=== PATIENT | female | born 1985 | race Caucasian/White ===

== ENCOUNTER 2017-03-01 17:08 | Emergency (ER) | payer BC ==
[~2017-03-01] VITALS: Ht 167.6 cm; Wt 98.4 kg
[~2017-03-01 17:08] MED LIST: IBUP-103 PO; PRLSR20 PO
[2017-03-01 17:18] VITALS: TEMP 37; Ht 167.6 cm; Wt 98.4 kg
[2017-03-01] MEDS ORDERED: SODIUM CHLORIDE 0.9% 1000ML 1,000 ML IV ONE (17:45)
[2017-03-01] MEDS ORDERED: RANITAB33 PO (17:59)
--- NOTE | 2017-03-01 18:01 | EMERGENCY ROOM VISIT NOTE ---
History First contact with patient: 17:22 Chief Complaint: ABDOMINAL PAIN Stated Complaint: UPPER RT STOMACH PAIN AFTER MEALS, SHOULDER PAIN Nursing Triage Summary: RUQ abdominal pain radiating to shoulder ongoing after eating History of Present Illness The patient is a 32 year old female who presents to the Emergency Room with complaints of right upper abdominal pain that has been intermittent over the last 2 months. The patient describes it as a constant, dull ache. Intermittently, she gets sharp, stabbing pains. It is worse with eating. She has had nausea without vomiting. Denies any fever or chills. I'll movements have been fairly irregular; anywhere from constipation to diarrhea. Her last bowel movement was this morning. Review of Systems 10 system review performed and negative unless noted in HPI or below Past Medical/Surgical History Medical Problems: (1) Asthma (2) Endometriosis (3) GERD (gastroesophageal reflux disease) Surgical Problems: (1) S/P total hysterectomy and bilateral salpingo-oophorectomy Family History Diabetes mellitus FH: cancer FH: cancer FH: lung disease Hypertension Social History Smoking Status: Current Every Day Smoker Alcohol Use: occasionally Marital Status: Housing Status: lives with family Occupation Status: employed Current/Historical Medications Scheduled Ondasetron Odt (Zofran Odt), 4 MG SL Q6H Scheduled PRN Hydrocodone/Acetaminophen 5MG/325MG (Whately 5MG/325MG), 1-2 TABLET PO Q4H PRN for Pain Ibuprofen Tab (Advil), 200-600 MG PO Q6-8H PRN for Pain Ranitidine Hcl (Zantac), 75 MG PO DAILY PRN for GI Upset Allergies Coded Allergies: Cinnamon (Verified Allergy, Severe, THROAT SWELLS,RESP DIFFICULTY, ) Lactose Intolerance (Verified Allergy, Severe, GI SYMPTOMS, 03/01/17) Naproxen (Verified Allergy, Severe, GI SYMPTOMS,SYNCOPAL EPISODES, ) Adhesives (Verified Allergy, Intermediate, REDNESS,BLISTERS, 03/01/17) Ketorolac Tromethamine (Verified Allergy, Intermediate, GI SYMPTOMS, 03/01) Uncoded Allergies: ARTIFICIAL SWEETENERS (Allergy, Severe, SWELLING AND BLISTERS OF TONGUE, ) PAPER TAPE,BANDAIDES (Allergy, Intermediate, REDNESS,BLISTERS, 03/01/17) Physical Exam Vital Signs Date Time Temp Pulse Resp B/P (MAP) Pulse Ox O2 Delivery O2 Flow Rate FiO2 03/01/17 21:09 76 18 168/117 98 03/01/17 19:28 85 16 175/122 97 Room Air 03/01/17 17:18 37.0 88 20 177/127 97 Room Air Physical Exam VITALS: Vitals are noted on the nurse's note and reviewed by myself. Vital signs stable. GENERAL: 32-year-old female, in no acute distress, nondiaphoretic, well- developed well-nourished. SKIN: The skin was without rashes, erythema, edema, or bruising. HEAD: Normocephalic atraumatic. MOUTH: Mucous membranes NECK: Supple without nuchal rigidity. HEART: Regular rate and rhythm without murmurs gallops or rubs. LUNGS: Clear to auscultation bilaterally without wheezes, rales or rhonchi. No accessory muscle use. ABDOMEN: Positive bowel sounds x 4.Soft, tenderness to palpation in the right upper quadrant, without organomegaly. No guarding or rebound tenderness. MUSCULOSKELETAL: No muscle atrophy, erythema, or edema noted. Strength 5/5 throughout. NEURO: Patient was alert and oriented to person place and time. Normal sensation to touch. No focal neurological deficits. Medical Decision & Procedures ER Provider Diagnostic Interpretation: GB US IMPRESSION: 1. No change compared to the prior study. 2. Hepatomegaly demonstrating fatty change. 3. Normal gallbladder. No gallstones. Electronically signed by: Michael Miller M.D. 03/01/2017 7:30 PM Dictated Date/Time: 03/01/2017 7:28 PM The status of this report is Signed. Draft = Not yet reviewed or approved by Radiologist. Signed = Reviewed and approved by Radiologist. <AttendingPhy></AttendingPhy> <FamilyPhy>No Doctor, Assigned</FamilyPhy> < PrimaryPhy>No Doctor, Assigned</PrimaryPhy> <UnitNumber>[id number]</UnitNumber> <VisitNumber>[id number]</VisitNumber> <PatientName>LAMBERTO RICHARDSON</PatientName > <DateOfBirth>1985</DateOfBirth> <Location>[facility]</Location> <ServiceDate> 03/01/17</ServiceDate> <MNE>ESINDI</MNE> <OrderingPhy>Keturah Lombardi PA-C</ OrderingPhy> <OrderingPhyMNE>f rep ord dr steward</OrderingPhyMNE> <DictatingPhyMNE> f rep dict dr steward</DictatingPhyMNE> <CCListMNE>f rep ct mne</CCListMNE> < AdmittingPhyMNE>f pt admit dr steward</AdmittingPhyMNE> <AttendingPhyMNE>f pt attend dr steward</AttendingPhyMNE> <ConsultingPhyMNE>f pt consult dr steward</ConsultingPhyMNE> <FamilyPhyMNE>f pt fam dr steward</FamilyPhyMNE> <OtherPhyMNE>f pt other dr steward</OtherPhyMNE> < PrimaryPhyMNE>f pt prim care dr steward</PrimaryPhyMNE> <ReferringPhyMNE>f pt referring dr steward</ReferringPhyMNE> Laboratory Results 03/01/17 17:30 Red Blood Count 4.91, Mean Corpuscular Volume 90.8, Mean Corpuscular Hemoglobin 30.3, Mean Corpuscular Hemoglobin Concent 33.4, Mean Platelet Volume 9.8, Neutrophils (%) (Auto) 54.8, Lymphocytes (%) (Auto) 36.6, Monocytes (%) (Auto) 5.8, Eosinophils (%) (Auto) 1.7, Basophils (%) (Auto) 0.5, Neutrophils # (Auto) 6.99, Lymphocytes # (Auto) 4.65, Monocytes # (Auto) 0.74, Eosinophils # (Auto) 0.21, Basophils # (Auto) 0.06 03/01/17 17:30 Test 03/01/17 17:30 03/01/17 17:50 White Blood Count 12.72 K/uL (4.8-10.8) Red Blood Count 4.91 M/uL (4.2-5.4) Hemoglobin 14.9 g/dL (12.0-16.0) Hematocrit 44.6 % (37-47) Mean Corpuscular Volume 90.8 fL (80-100) Mean Corpuscular Hemoglobin 30.3 pg (25-34) Mean Corpuscular Hemoglobin Concent 33.4 g/dl (32-36) Platelet Count 209 K/uL (130-400) Mean Platelet Volume 9.8 fL (7.4-10.4) Neutrophils (%) (Auto) 54.8 % Lymphocytes (%) (Auto) 36.6 % Monocytes (%) (Auto) 5.8 % Eosinophils (%) (Auto) 1.7 % Basophils (%) (Auto) 0.5 % Neutrophils # (Auto) 6.99 K/uL (1.4-6.5) Lymphocytes # (Auto) 4.65 K/uL (1.2-3.4) Monocytes # (Auto) 0.74 K/uL (0.11-0.59) Eosinophils # (Auto) 0.21 K/uL (0-0.5) Basophils # (Auto) 0.06 K/uL (0-0.2) RDW Standard Deviation 41.3 fL (36.4-46.3) RDW Coefficient of Variation 12.4 % (11.5-14.5) Immature Granulocyte % (Auto) 0.6 % Immature Granulocyte # (Auto) 0.07 K/uL (0.00-0.02) Anion Gap 11.0 mmol/L (3-11) Est Creatinine Clear Calc Drug Dose 115.4 ml/min Estimated GFR () 109.0 Estimated GFR (Non- 94.0 BUN/Creatinine Ratio 17.1 (10-20) Calcium Level 9.0 mg/dl (8.5-10.1) Total Bilirubin 0.6 mg/dl (0.2-1) Aspartate Amino Transf (AST/SGOT) 15 U/L (15-37) Alanine Aminotransferase (ALT/SGPT) 29 U/L (12-78) Alkaline Phosphatase 74 U/L (45-117) Total Protein 7.2 gm/dl (6.4-8.2) Albumin 4.1 gm/dl (3.4-5.0) Globulin 3.1 gm/dl (2.5-4.0) Albumin/Globulin Ratio 1.3 (0.9-2) Lipase 184 U/L (73-393) Urine Test NEG (NEG) Medications Administered Medications (Trade) Dose Ordered Sig/Lyle Route Start Time Stop Time Status Last Admin Dose Admin Sodium Chloride 1,000 ml @ 999 mls/hr Q1H1M ONCE IV 03/01/17 17:45 03/01/17 18:45 DC 03/01/17 17:45 999 MLS/HR ED Course Patient was seen and examined Vital signs including blood pressure were reviewed medications list was verified with patient Labs were obtained, and a saline lock was established The patient declined pain medication The patient is reevaluated. She was resting comfortably. We discussed her workup. She was to understanding. The case was also discussed with my supervising physician, who is in agreement with my plan. I reviewed discharge instructions the patient. They voiced understanding and had no further questions. Medical Decision DIFFERENTIAL DIAGNOSIS: Gastroenteritis, Hepatitis, cholecystitis, cholangitis, biliary colic, pancreatitis, appendicitis, inguinal hernia, nephrolithiasis, inflammatory bowel disease, mesenteric adenitis, peptic ulcer disease, GERD, gastritis, pancreatitis,, bowel obstruction, splenic infarct, diverticulitis, mesenteric ischemia, metabolic, peritonitis, among others. This patient is a 32-year-old female that presented to the emergency department with nausea and right upper abdominal pain worse with eating that has been intermittent over the last 2 months. On exam, she was nontoxic in appearance. She was afebrile. Her blood pressure was elevated, however this improved throughout her stay. She was tender in the right upper abdomen. There is no guarding or rebound tenderness. Her labs reveal mild leukocytosis. This is similar to her previous labs. Otherwise, they are unremarkable. There is no elevation of the LFTs or lipase. Her ultrasound did not show any signs of gallstones or cholecystitis. Her symptoms do sound like biliary colic. The patient was informed that she probably will need further testing such as possibly a HIDA scan. The patient was advised to call her primary care physician in the morning for close follow-up. She was given a list of providers in the area. She also will need her blood pressure rechecked. He was informed of this. She voiced understanding. She was given a short course of anti-emetics and narcotics. She agreed to return to the emergency department with any new or worsening symptoms. This chart was completed in part utilizing [employer] Voice Recognition software. Attempts were made to minimize the grammatical errors, random word insertions, pronoun errors and incomplete sentences. Any formal questions or concerns about the content, text or information contained within the body of this dictation should be directly addressed to the provider for clarification. Impression Primary Impression: Abdominal pain Additional Impression: Right upper quadrant abdominal pain Departure Information Dispostion Home / Self-Care Condition GOOD Prescriptions Hydrocodone/Acetaminophen 5MG/325MG (Whately 5MG/325MG) Tab 1-2 TABLET PO Q4H Y for Pain, #15 TAB For Initial Treatment Prov: Keturah Lombardi PA-C 03/01/17 Ondasetron Odt (ZOFRAN ODT) 4 Mg Tab 4 MG SL Q6H for Nausea, #20 TAB Prov: Keturah Lombardi PA-C 03/01/17 Referrals No Doctor, Assigned (PCP) Patient Instructions [facility] Additional Instructions You were evaluated in the emergency department for abdominal pain. At this point, the reason is unclear. It could still be your gallbladder. Please call your primary care physician tomorrow morning for a follow-up appointment. It is very important for you to be seen by a provider this week. Try to stay well-hydrated. Drink plenty of fluids. Follow a bland diet. Whately 1-2 tabs every 4 hours for severe pain. Do not drink alcohol or drive while taking this medication. This may be taken with ibuprofen, but avoid Tylenol. Please take Colace which is an noxi-ezh-zpezxur stool softener twice daily when taking this medication as it may cause constipation. Please return to the emergency department with a new, worsening or concerning symptoms Problem Qualifiers
[2017-03-01 18:18] LABS: BASO % 0.5 %; BASO ABS # 0.06 K/uL (0-0.2); COMPLETE YES; EOS % 1.7 %; HEMATOCRIT 44.6 % (37-47); IG% 0.6 %; LYMPH % 36.6 %; LYMPH ABS # 4.65 K/uL (1.2-3.4); MEAN CELL VOLUME 90.8 fL (80-100); MEAN CORPUSCULAR HEMOGLOBIN 30.3 pg (25-34); MEAN CORPUSCULAR HGB CONC 33.4 g/dl (32-36); MEAN PLATELET VOLUME 9.8 fL (7.4-10.4); MONO % 5.8 %; NEUT % 54.8 %; PLATELET COUNT 209 K/uL (130-400); RED BLOOD COUNT 4.91 M/uL (4.2-5.4); WHITE BLOOD COUNT 12.72 K/uL (4.8-10.8)
[2017-03-01 18:41] LABS: BUN/CREATININE RATIO 17.1 (10-20); CREATININE 0.82 mg/dl (0.60-1.20); POTASSIUM 3.9 mmol/L (3.5-5.1)
[2017-03-01 18:43] LABS: ALB/GLOB RATIO 1.3 (0.9-2)
--- NOTE | 2017-03-01 19:31 | DIAGNOSTIC IMAGING REPORT ---
ABDOMINAL ULTRASOUND, RIGHT UPPER QUADRANT HISTORY: Right upper quadrant pain. Nausea.. COMPARISON: Abdominal ultrasound 06/26/2015. FINDINGS: Pancreas: The pancreas demonstrates a normal echotexture. Liver: The liver remains enlarged measuring 20 cm in length. The liver is also echogenic consistent with fatty change. Gallbladder: No gallbladder wall thickening. No gallstones. CBD: 3 mm. Right kidney: No hydronephrosis. IMPRESSION: 1. No change compared to the prior study. 2. Hepatomegaly demonstrating fatty change. 3. Normal gallbladder. No gallstones. Electronically signed by: Michael Miller M.D. 03/01/2017 7:30 PM Dictated Date/Time: 03/01/2017 7:28 PM
[2017-03-01] MEDS ORDERED: HYDR-5688 PO ×2 (20:25→21:07)
[2017-03-01] MEDS ORDERED: ONDA4TAB10 SL (20:25)
[2017-03-01 21:09] VITALS: BP 168/117; PULSE 76; O2SAT 98
== END 2017-03-01 21:09 | disposition home or self-care (01) ==
LOC: C.EDB 17:09 → C.EDC 21:09
DX: R10.11 Right upper quadrant pain (principal); J45.909 Unspecified asthma, uncomplicated; N80.9 Endometriosis, unspecified; K21.9 Gastro-esophageal reflux disease without esophagitis; Z83.3 Family history of diabetes mellitus; Z80.9 Family history of malignant neoplasm, unspecified; Z83.6 Family history of other diseases of the respiratory system; Z82.49 Family history of ischemic heart disease and other diseases of the circulatory system; F17.210 Nicotine dependence, cigarettes, uncomplicated

== ENCOUNTER → 2017-03-30 | Outpatient (CLI) | payer BC ==
[~2017-03-30] MED LIST changes: +HYDR-5688 PO; +ONDA4TAB10 SL; -PRLSR20 PO; +RANITAB33 PO; +SINCALIDE INJ 1.9 MCG in SODIUM CHLORIDE 0.9% 100ML 100 ML IV ONE
--- NOTE | 2017-03-30 13:13 | DIAGNOSTIC IMAGING REPORT ---
HEPATOBILIARY EF IMAGING CLINICAL HISTORY: 32 years-old Female presenting with R10.11 Intermittent right upper quadrant abdominal [id number]. TECHNIQUE: Dynamic imaging of the gallbladder was initiated 65 minutes after administration of 5.3 mCi of technetium 99m Choletec. Imaging was obtained every 5 minutes over a span of 40 minutes. 1.9 mcg of sincalide was injected 5 minutes prior to the start of imaging. The gallbladder ejection fraction was calculated. COMPARISON: Ultrasound from 03/01/2017.. FINDINGS: The hepatobiliary scan shows normal filling of the gallbladder at the start of imaging. Expected activity within the bowel also noted. Gallbladder ejection fraction measured at 40% (normal greater than 35-50%). IMPRESSION: 1. Borderline abnormal gallbladder ejection fraction. This is equivocal for chronic cholecystitis. Consider short-term follow-up for repeat HIDA ejection fraction exam. Electronically signed by: Bright Bunch M.D. 03/30/2017 1:12 PM Dictated Date/Time: 03/30/2017 1:09 PM
== END | disposition home or self-care (01) ==
LOC: C.NUCL 10:13
PROVIDERS: ATTEND Nurse Practitioner Family
DX: R10.11 Right upper quadrant pain (principal)

== ENCOUNTER 2017-04-16 08:41 | Day surgery (SDC) | payer BC ==
[2017-04-09 16:07] VITALS: BMI 35.0
--- NOTE | 2017-04-10 14:13 | DIAGNOSTIC IMAGING REPORT ---
TWO VIEW CHEST CLINICAL HISTORY: Preoperative examination. FINDINGS: PA and lateral chest radiographs are compared to study dated 06/26/2015. The cardiomediastinal silhouette is unremarkable. The lungs and pleural spaces are clear. There is no pneumothorax. The bony thorax appears intact. IMPRESSION: No active disease in the chest. Electronically signed by: Jl Marcus M.D. 04/10/2017 2:11 PM Dictated Date/Time: 04/10/2017 2:09 PM
[~2017-04-16] VITALS: Ht 167.6 cm; Wt 98.2 kg
[~2017-04-16 08:41] MED LIST changes: +ACET325T96 PO; +FENTANYL CITRATE INJ 50 MCG/1 ML 2 ML VIAL ONE; +LACTATED RINGER'S 1000ML 1,000 ML IV SCH; +MIDAZOLAM HCL 1 MG/ML 2ML VIAL ONE; -ONDA4TAB10 SL; +ONDA4TAB46 PO; -RANITAB33 PO; -SINCALIDE INJ 1.9 MCG in SODIUM CHLORIDE 0.9% 100ML 100 ML IV ONE; +ZNTT/150 PO
--- NOTE | 2017-04-16 09:14 | History & Physical Bridge Note ---
H&P Re-Evaluation Bridge Note: I have examined the patient, reviewed the History & Physical and in the interval since the performance of the History & Physical I have noted the following changes of clinical significance: No changes noted all questions answered no one at bedside
[2017-04-16] MEDS ORDERED: lisinopril/hctz PO (09:15)
[2017-04-16 09:16] VITALS: BP 154/98; PULSE 96; TEMP 37; O2SAT 97; Ht 167.6 cm; Wt 98.2 kg
[2017-04-16] MEDS ORDERED: OXYC-57 PO (09:17)
--- NOTE | 2017-04-16 09:19 | Discharge Instructions ---
Discharge Instructions Date of Service Apr 16, 2017. Visit Reason for Visit: Right Upper Quadrant Abdominal Pain, Abn Hida Scan Discharge Discharge Diagnosis / Problem: laparoscopic cholecystectomy Discharge Goals Goal(s): Decrease discomfort Activity Recommendations Activity Limitations: as noted below Lifting Limitations: no more than 10 pounds Shower/Bathe: tomorrow Driving or Machine Use: resume 3 days after discharge Anesthesia . Post Anesthesia Instructions: If you have had General Anesthesia or IV Sedation: * Do not drive today. * Resume driving when surgeon permits. * Do not make important decisions or sign legal documents today. * Call surgeon for: 1. Temperature elevations greater than 101 degrees F. 2. Uncontrollable pain. 3. Excessive bleeding. 4. Persistent nausea and vomiting. 5. Medication intolerance (nausea, vomiting or rash). * For nausea and vomiting use only clear liquids such as: tea, soda, bouillon until nausea subsides, then gradually increase diet as tolerated. * If you have any concerns or questions, call your surgeon's office. If physician is unavailable and it is an emergency, call 911 or go to the nearest emergency room. . Instructions / Follow-Up Instructions / Follow-Up Dr. Zheng in 1 week, call [phone] if you do not already have an appt or have any questions Diet Recommendations Recommended Home Diet: no limitations Pending Studies Studies pending at discharge: no Medical Emergencies . Who to Call and When: Medical Emergencies: If at any time you feel your situation is an emergency, please call 911 immediately. . Non-Emergent Contact Non-Emergency issues call your: Surgeon Call Non-Emergent contact if: you have a fever, temperature is above 101.5, your pain is not controlled, wound has increased pain, you have any medication questions . . "Provider Documentation" section prepared by Killian Soriano. . [place] Drug Monitoring Program Search Results: no issues identified
[2017-04-16] MEDS ORDERED: ATROPINE SULFATE 0.1 MG/ML 5ML SYR IV PRN (09:30)
[2017-04-16] MEDS ORDERED: EpHEDrine SULFATE INJ 50 MG/ML AMP IV PRN (09:30)
[2017-04-16] MEDS ORDERED: ONDANSETRON INJ 2 MG/ML 2 ML VIAL IV PRN ×2 (09:30→11:00)
[2017-04-16] MEDS ORDERED: NALOXONE HCL 0.4 MG/1 ML VIAL/CARP IV PRN (09:30)
[2017-04-16] MEDS ORDERED: LABETALOL HCL IV 5 MG/ML 20ML IV PRN (09:30)
[2017-04-16] MEDS ORDERED: PROMETHAZINE HCL INJ 12.5 MG in SODIUM CHLORIDE 0.9% 50ML 50 ML IV PRN (09:30)
[2017-04-16] MEDS ORDERED: FLUMAZENIL 0.1 MG/1 ML 10 ML VIAL IV PRN (09:30)
[2017-04-16] MEDS ORDERED: CONRAY 60% 50 ML VIAL ONE (09:41)
[2017-04-16] MEDS ORDERED: LIDOCAINE HCL 1% 20 ML VIAL ONE (09:43)
[2017-04-16] MEDS ORDERED: FENTANYL CITRATE INJ 50 MCG/1 ML 2 ML VIAL ONE (10:08)
[2017-04-16] MEDS ORDERED: LARYING-O-JET KIT (LTA) ONE (10:19)
[2017-04-16] MEDS ORDERED: PROPOFOL IV EMULSION 10 MG/ML 20 ML VIAL IV ONE (10:19)
[2017-04-16] MEDS ORDERED: NEOSTIGMINE METHYLSULFATE 5 MG/5 ML SYR ONE (10:19)
[2017-04-16] MEDS ORDERED: DEXAMETHASONE SOD INJ 4 MG/ML VIAL ONE (10:19)
[2017-04-16] MEDS ORDERED: GLYCOPYRROLATE INJ 0.2 MG/ML VIAL ONE (10:19)
[2017-04-16] MEDS ORDERED: ONDANSETRON INJ 2 MG/ML 2 ML VIAL ONE (10:19)
[2017-04-16] MEDS ORDERED: ESMOLOL HCL 10 MG/ML 10 ML VIAL ONE (10:19)
[2017-04-16] MEDS ORDERED: ROCURONIUM BROMIDE 10 MG/ML 5 ML VIAL IV ONE (10:19)
[2017-04-16] MEDS ORDERED: LIDOCAINE HCL 2% 2 ML VIAL (20MG/ML) ONE (10:19)
--- NOTE | 2017-04-16 10:52 | DIAGNOSTIC IMAGING REPORT ---
CHOLANGIOGRAM O.R. HISTORY: Post cholecystectomy. FLUOROSCOPY TIME: 5 seconds. FINDINGS: Fluoroscopy was provided for an intraoperative cholangiogram status post cholecystectomy. Contrast was injected through the cystic duct remnant. The common bile duct is normal in course and caliber. There are no filling defects seen within the common bile duct to suggest a retained stone. Contrast extends into the small bowel. There is no intrahepatic bile duct dilatation. IMPRESSION: Fluoroscopy provided for an intraoperative cholangiogram status post cholecystectomy. No filling defects within the common bile duct. The above report was generated using voice recognition software. It may contain grammatical, syntax or spelling errors. Electronically signed by: Glenn Russell M.D. 04/16/2017 10:51 AM Dictated Date/Time: 04/16/2017 10:50 AM
--- NOTE | 2017-04-16 10:55 | [facility] Post Operative Brief Note ---
Immediate Operative Summary Operative Date Apr 16, 2017. Pre-Operative Diagnosis Right Upper Quadrant Pain, clinically gallbladder disease Post-Operative Diagnosis Same Procedure(s) Performed Laparoscopic Cholecystectomy with Cholangiogram Surgeon Dr. Zheng Rotary Bar Operator Surgeon(s) Killian Soriano PA-C Estimated Blood Loss 3 ml Findings adhesions to gallbladder Specimens A. Gallbladder Complication(s) None (OR summary dictated confirmation number [id number], and [id number](fluoro))
[2017-04-16] MEDS ORDERED: ALBUTEROL HFA INHALER 8.5 GM INH ONE (10:56)
[2017-04-16] MEDS ORDERED: OXYCODONE/ACETAMINOPHEN 5-325 TAB PO PRN (11:00)
[2017-04-16] MEDS ORDERED: MEPERIDINE HCL 25 MG/ML CARP IV PRN (11:00)
[2017-04-16] MEDS ORDERED: MoRPHine SULFATE 4 MG/ML 1 ML CARP\\VIAL IV PRN (11:00)
--- NOTE | 2017-04-16 11:09 | OPERATIVE REPORT ---
DATE OF OPERATION: 04/16/2017 FLUOROSCOPY The patient underwent laparoscopic cholecystectomy, intraoperative cholangiogram. We did use fluoroscopy to perform the cholangiogram portion. I attest to the content of the Intraoperative Record and any orders documented therein. Any exception s are noted below.
--- NOTE | 2017-04-16 11:17 | OPERATIVE REPORT ---
DATE OF OPERATION: 04/16/2017 SURGEON: Daniel Zheng MD. MANAGER SHOP: Killian Soriano PA-C. PREOPERATIVE DIAGNOSIS: Right upper quadrant pain, clinically gallbladder disease. POSTOPERATIVE DIAGNOSIS: Same. PROCEDURE: Laparoscopic cholecystectomy, intraoperative cholangiogram. INDICATIONS FOR SURGERY: The patient had significant right upper quadrant pain. She had extensive workup including a HIDA scan and ultrasound were all negative, but clinically she had the classical symptoms of gallbladder dysfunction including a strong family history. SUMMARY: The patient was brought into the operating room theater. Under general anesthesia, the abdomen was prepped with Betadine scrubbing solution and properly draped. A small incision was made supraumbilically sufficient enough to place a Veress needle followed by a 5 mm trocar. Point of entry inspected and no injury identified. Under direct visualization, I placed a 5 mm epigastric port with preemptive local analgesia 1% Xylocaine and two 3 mm subcostal ports with preemptive local anesthesia, these were all under direct visualization. The liver was identified, it was grossly normal. We then identified the gallbladder, placed it under traction. It had some adhesions to the gallbladder which were fine and right towards the neck were taken down by blunt dissection. We then dissected out the triangle of Calot, identified a real small cystic duct, we clamped it proximally. A small opening in the cystic duct was made where a #4 urethral catheter was inserted after transversing the abdominal well and a 14 Angiocath. Serial x-rays were taken and showed free flow into the duodenum. I could see the cystic duct going into the common bile duct. At the beginning of it, it was very little to retrograde in the bifurcation, but there was no evidence of any obstruction. At this point, the catheter was removed and the cystic duct was doubly clipped and divided. The artery was identified, it was doubly clipped proximally and distally and divided. There was another posterior branch, it was similarly divided. The gallbladder was then removed in antegrade fashion using electrocautery, leaving the posterior peritoneum as much as intact as possible. Once it was freed from the liver bed, we placed it in an Endopouch and took it out intact through the epigastric port. The subhepatic and suprahepatic area was checked for hemostasis and appeared satisfactory. We then placed a camera in the epigastric port to visualize the umbilical area. There were no bowel, there was a small adhesive band identified around the umbilical tissue, we left that intact. There was just an omentum and we left that intact. Individual trocars removed and last the umbilical trocar. Wounds were closed with 4-0 Monocryl. Steri-Strips applied. The procedure was tolerated well by the patient and was taken to recovery room in good condition. I attest to the content of the Intraoperative Record and any orders documented therein. Any exception s are noted below.
[2017-04-16] MEDS: FENTANYL CITRATE INJ 50 MCG/1 ML 2 ML VIAL IV PRN ×2 (11:30→11:35)
--- NOTE | 2017-04-16 11:46 | Anesthesiology Progress Note ---
Anesthesia Post Op Note Date & Time Apr 16, 2017 at 11:46 Vital Signs Pain Intensity: 3 Vital Signs Past 12 Hours Date Time Temp Pulse Resp B/P (MAP) Pulse Ox O2 Delivery O2 Flow Rate FiO2 04/16/17 11:35 96 16 141/91 99 Room Air 04/16/17 11:25 79 16 150/93 100 Oxymask 3 04/16/17 11:15 78 16 153/97 100 Oxymask 5 04/16/17 11:06 36.2 103 16 151/105 100 Oxymask 10 04/16/17 09:16 37 96 20 154/98 (116) 97 Room Air Notes Mental Status: alert / awake / arousable, participated in evaluation Pt Amnestic to Procedure: Yes Nausea / Vomiting: adequately controlled Pain: adequately controlled Airway Patency, RR, SpO2: stable & adequate BP & HR: stable & adequate Hydration State: stable & adequate Anesthetic Complications: no major complications apparent
[2017-04-16 11:55] VITALS: BP 179/109; PULSE 93; TEMP 36.8; O2SAT 94
[2017-04-16 12:25] VITALS: BP 189/105; PULSE 102; O2SAT 94
[2017-04-16 12:55] VITALS: BP 151/97; PULSE 102; TEMP 36.8; O2SAT 95
[2017-04-16] MEDS ORDERED: LACTATED RINGER'S 1000ML 1,000 ML IV SCH (15:00)
== END 2017-04-16 13:00 | disposition home or self-care (01) ==
LOC: C.ACU 08:41
PROVIDERS: ATTEND Surgery
DX: K81.1 Chronic cholecystitis (principal); I10 Essential (primary) hypertension; E73.9 Lactose intolerance, unspecified; G43.909 Migraine, unspecified, not intractable, without status migrainosus; F17.210 Nicotine dependence, cigarettes, uncomplicated; Z79.899 Other long term (current) drug therapy; J45.909 Unspecified asthma, uncomplicated; K21.9 Gastro-esophageal reflux disease without esophagitis; E66.9 Obesity, unspecified; Z68.34 Body mass index [BMI] 34.0-34.9, adult

== ENCOUNTER → 2017-04-30 | Outpatient (CLI) | payer BC ==
[~2017-04-30] MED LIST changes: -ACET325T96 PO; -FENTANYL CITRATE INJ 50 MCG/1 ML 2 ML VIAL ONE; -HYDR-5688 PO; -LACTATED RINGER'S 1000ML 1,000 ML IV SCH; -MIDAZOLAM HCL 1 MG/ML 2ML VIAL ONE; +OXYC-57 PO; +lisinopril/hctz PO
[2017-04-30 18:06] LABS: BASO % 0.5 %; BASO ABS # 0.07 K/uL (0-0.2); EOS % 1.3 %; EOS ABS # 0.19 K/uL (0-0.5); HEMATOCRIT 38.8 % (37-47); HEMOGLOBIN 13.4 g/dL (12.0-16.0); IG# 0.05 K/uL (0.00-0.02); LYMPH % 34.4 %; LYMPH ABS # 4.93 K/uL (1.2-3.4); MEAN CELL VOLUME 90.4 fL (80-100); MEAN CORPUSCULAR HEMOGLOBIN 31.2 pg (25-34); MEAN CORPUSCULAR HGB CONC 34.5 g/dl (32-36); MEAN PLATELET VOLUME 9.1 fL (7.4-10.4); MONO % 4.5 %; MONO ABS # 0.65 K/uL (0.11-0.59); NEUT ABS # 8.45 K/uL (1.4-6.5); PLATELET COUNT 229 K/uL (130-400); RED CELL DISTRIBUTION WIDTH CV 12.8 % (11.5-14.5); RED CELL DISTRIBUTION WIDTH SD 41.9 fL (36.4-46.3); WHITE BLOOD COUNT 14.34 K/uL (4.8-10.8)
[2017-04-30 18:28] LABS: ALBUMIN 4.1 gm/dl (3.4-5.0); TOTAL PROTEIN 7.2 gm/dl (6.4-8.2)
== END | disposition home or self-care (01) ==
LOC: C.LAB 17:44
PROVIDERS: ATTEND Physician Assistant
DX: R10.33 Periumbilical pain (principal)

== ENCOUNTER → 2017-04-30 | Outpatient (CLI) | payer BC ==
--- NOTE | 2017-04-30 16:14 | DIAGNOSTIC IMAGING REPORT ---
ULTRASOUND OF THE ABDOMINAL WALL CLINICAL HISTORY: Periumbilical pain. Recent cholecystectomy. COMPARISON STUDY: Abdominal CT dated 05/13/2014. FINDINGS: Real-time grayscale sonography of the ventral abdominal wall is performed at the indicated site of interest. No hernia is identified. No hernia could be elicited by having the patient perform the Valsalva maneuver. There is a nonspecific pocket of fluid identified in the gallbladder fossa. This measures 7.9 x 1.8 x 5.7 cm. Findings suggest hepatic steatosis. IMPRESSION: 1. No umbilical hernia is identified as clinically queried. 2. There is a nonspecific pocket of fluid in the gallbladder fossa. This is nonspecific given recent surgery and likely represents a seroma/hematoma. Biloma or abscess are considered less likely. Clinical correlation will be essential. Electronically signed by: Jl Marcus M.D. 04/30/2017 4:13 PM Dictated Date/Time: 04/30/2017 4:10 PM
== END | disposition home or self-care (01) ==
LOC: C.ULTR 15:27
PROVIDERS: ATTEND Physician Assistant
DX: R10.33 Periumbilical pain (principal)

== ENCOUNTER 2019-02-16 00:54 | Observation (INO) ==
[2019-02-16] MEDS ORDERED: NITROGLYCERIN SL 0.4 MG/TAB TAB ONE (01:08)
[2019-02-16] MEDS ORDERED: LORazepam 1 MG/2 ML VIAL IV STA (01:11)
[2019-02-16] MEDS ORDERED: NITROGLYCERIN SL 0.4 MG/TAB TAB SL STA (01:12)
[2019-02-16 01:34] LABS: Basophils # (auto) 0.07 K/uL (0-0.2); Basophils % (auto) 0.6 %; Eosinophils # (auto) 0.31 K/uL (0-0.5); Eosinophils % (auto) 2.5 %; Hematocrit (blood only) 41.8 % (37-47); Hemoglobin 14.2 g/dL (12.0-16.0); Immature Granulocytes # (auto) 0.04 K/uL (0.00-0.02); Immature Granulocytes % (auto) 0.3 %; Lymphocytes # (auto) 4.88 K/uL (1.2-3.4); Lymphocytes % (auto) 39.5 %; Mean Corpuscular Hemoglobin 30.9 pg (25-34); Mean Corpuscular Volume 91.1 fL (80-100); Mean Platelet Volume 9.7 fL (7.4-10.4); Monocytes # (auto) 0.82 K/uL (0.11-0.59); Monocytes % (auto) 6.6 %; Neutrophils # (auto) 6.25 K/uL (1.4-6.5); Neutrophils % (auto) 50.5 %; Platelet Count 202 K/uL (130-400); RDW Coefficient of Variation 12.2 % (11.5-14.5); RDW Standard Deviation 40.9 fL (36.4-46.3); Red Blood Count 4.59 M/uL (4.2-5.4); White Blood Count 12.37 K/uL (4.8-10.8)
[2019-02-16 01:54] LABS: Alanine Aminotransferase 26 U/L (12-78); Albumin Level 3.9 gm/dl (3.4-5.0); Aspartate Aminotransferase 11 U/L (15-37); BUN Creatinine Ratio 16.2 (10-20); Blood Urea Nitrogen 17 mg/dl (7-18); Calcium 8.8 mg/dl (8.5-10.1); Carbon Dioxide 24 mmol/L (21-32); Chloride 109 mmol/L (98-107); Creatinine Clr Calc Pharmacy 88.8 ml/min; Est GFR (African American) 81.6; Est GFR (Non-African American) 70.4; Glucose 132 mg/dl (70-99); Lipase 207 U/L (73-393); Potassium 3.4 mmol/L (3.5-5.1); Sodium 142 mmol/L (136-145)
[2019-02-16] MEDS ORDERED: ONDANSETRON INJ 2 MG/ML 2 ML VIAL IV STA (01:57)
[2019-02-16] MEDS ORDERED: fentaNYL citrate 100 MCG/2 ML VIAL IV STA (01:57)
[2019-02-16 01:58] LABS: Albumin Globulin Ratio 1.3 (0.9-2); Alkaline Phosphatase 86 U/L (45-117); Bilirubin,Total 0.6 mg/dl (0.2-1); Total Protein 6.9 gm/dl (6.4-8.2); Troponin I < 0.015 ng/ml (0-0.045)
[2019-02-16] MEDS ORDERED: ASPIRIN 81 MG CHEW PO STA (02:05)
[2019-02-16] MEDS ORDERED: NITROGLYCERIN 2% OINTMENT 30GM TUBE EXT ONE (02:31)
[2019-02-16 02:35] LABS: D Dimer < 190 ug/L FEU (0-500)
--- NOTE | 2019-02-16 04:19 | History & Physical Report ---
Date of Service February 16, 2019 Assessment & Plan (1) Substernal chest pain: Dionne is a 34-year-old female with a past medical history of hypertension, GERD, neuropathic pain, migraines, and thyroid nodules who presented to the emergency department due to chest pain. ED course:1 mg IV Ativan, 0.4 mg SL nitroglycerin, 100 mcg fentanyl, 4 mg Zofran, 243 mg p.o. aspirin, 1 inch nitroglycerin paste Chest pain/EKG findings -Admit to telemetry -Patient's troponin is negative on arrival, will trend every 6 hours -EKG with ST depressions, most prominent in leads I and aVL, improved on repeat EKG, however still present in aVL -D-dimer negative -Chest x-ray within normal limits -Echo ordered -N.p.o. in case cardiac intervention is necessary -Patient currently chest pain-free, continue to monitor Hypertension -Continue home lisinopril Neuropathic pain -Per patient, she has a history of neuropathic pain in her foot -Continue gabapentin Thyroid nodule -Per review of outpatient records, her thyroid function has been within normal limits and her thyroid ultrasound was normal CODE STATUS: Full DVT prophylaxis: SCDs Disposition: Admit to telemetry for monitoring (2) Hypertension: (3) Acute electrocardiogram changes: (4) Thyroid nodule: (5) Migraine headache: (6) Benign essential hypertension: (7) GERD (gastroesophageal reflux disease): History of Present Illness Chief Complaint: Chest pain Primary Care Provider: Rhea Dong MD Dionne is a 34-year-old female with a past medical history of hypertension, GERD, neuropathic pain, migraines, and thyroid nodules who presented to the emergency department due to chest pain. She states that the chest pain occurred suddenly, 10:30 PM last evening, while she was trying to sleep. She reports the pain is over the center of her chest, and radiates up her neck into her jaw. She states the pain is 7/10, and describes it as though her chest is on fire. She denies any associated shortness of breath, diaphoresis, nausea, vomiting. She does report that she felt like she was shaking at that time. She states that she had Ativan, nitroglycerin, and fentanyl when she came into the emergency department. She states that the nitroglycerin did not take away her pain, however she does report that she is currently pain-free. She denies any prior history of chest pain. She denies any history of chest pain or shortness of breath on exertion. She reports that she does have a history of heartburn, and states that this felt like very severe heartburn, however she has not eaten any foods that may have provoked heartburn lately. She does endorse taking ranitidine daily in the past, however states that since they discontinued it, she has not been taking any daily antacids. Recently, she does endorse feeling lightheaded and dizzy at work, over the last week. She attributed this to not having eaten, and being on her feet all day. Past medical history: Hypertension, GERD, neuropathic pain, migraines, thyroid nodules Past surgical history: Total abdominal hysterectomy, cholecystectomy Medications: Gabapentin, as needed ibuprofen, lisinopril Allergies: Ketorolac, morphine, naproxen Family history: Mother with history of hypertension and valve replacement. Grandfather with history of [place]. Social history: , lives with . Smoker, smokes half pack of cigarettes per day. Allergies Allergy/AdvReac Type Severity Reaction Status Date / Time cinnamon Allergy Severe THROAT Verified 02/16/19 01:13 SWELLS,RESP DIFFICULTY adhesive Allergy Intermediate REDNESS,BLISTERS Verified 02/16/19 01:13 WITH PAPER TAPE ketorolac AdvReac Intermediate GI SYMPTOMS Verified 02/16/19 01:13 lactose AdvReac Intermediate GI SYMPTOMS Verified 02/16/19 01:13 morphine AdvReac Intermediate SEVERE Verified 02/16/19 01:13 NAUSEA/VOMITING naproxen AdvReac Intermediate GI Verified 02/16/19 01:13 SYMPTOMS,SYNCOPAL EPISODES Sweetness Enhancer Allergy Intermediate ARTIFICIAL Uncoded 02/16/19 01:13 SWEETENERS-MOUTH SWELLING Home Medications Home Medications Medication Instructions Recorded Confirmed Type lisinopril 40 mg tablet 40 mg PO DAILY #30 tab 10/11/18 02/16/19 Rx ibuprofen 200 mg tablet 400 mg PO Q6H PRN tab 01/18/19 02/16/19 History gabapentin 100 mg capsule 100 mg PO BID 01/19/19 02/16/19 History Past Med/Surg History Medical History Thyroid nodule (Chronic) Migraine headache (Acute) Lactose intolerance (Acute) Chronic cholecystitis (Acute) Benign essential hypertension (Chronic) Family History Grandmother (Maternal) Skin cancer Grandmother (Paternal) Lung cancer Grandmother Congestive heart failure Cardiac arrhythmia Grandfather Myocardial infarction Mother No problems noted. 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 Other Information That Helps Us Care for You: No Feels Safe at Home: Yes Safety Concerns: Feels Safe At This Time Smoking Status: Current every day smoker Cigarettes Per Day: 10 ; Second Hand Exposure: No ; Hx Alcohol Use: Yes Alcohol type: wine Alcohol Intake Frequency: Rarely Hx Substance Use: No caffeine: Yes (coffee) Dental Care, Regularly: Yes Physical Activity Frequency: Does not Exercise Seatbelt Use: always Sunscreen Use: Yes Review of Systems Constitutional: no fever, no chills and no anorexia Ear, Nose, Mouth, Throat: + nasal congestion; no sore throat Respiratory: no cough, no dyspnea and no wheezing Cardiovascular: + chest pain, + radiating jaw, neck or arm pain and + lightheadedness; no palpitations, no syncope, no edema and no calf pain Gastrointestinal: no abdominal pain, no nausea, no vomiting and no change in bowel habits Genitourinary: no dysuria, no difficulty urinating and no urinary urgency Musculoskeletal: no back pain Integumentary: no rash Physical Exam Constitutional: WD/WN, vitals as above no acute distress Eyes: PERRL, conjunctivae normal, anicteric sclerae ENMT: external ear and nose normal, oropharynx normal Respiratory: normal respiratory effort, lungs clear to auscultation Cardiovascular: RRR, no murmur, no edema Chest (Breasts): Additional Comments: Mildly tender to palpation over anterior aspect of chest wallpatient states that this feels achey Gastrointestinal (Abdomen): normal bowel sounds, soft, nontender, no hepatosplenomegaly Musculoskeletal: no cyanosis or clubbing, extremities motor strength 5/5 Skin: no rashes, warm and dry Neurologic: PERRL, EOMI, accommodation nl, no face palsy, no dysarthria Results & Data Vital Signs (Past 12 Hours) Vital Signs Temp Pulse Pulse Resp BP BP Pulse Ox 02/16/19 03:30 78 20 154/101 H 97 02/16/19 03:00 74 23 152/107 H 97 02/16/19 02:42 71 22 151/109 H 98 02/16/19 02:30 81 25 H 152/102 H 97 02/16/19 02:00 84 26 H 160/95 H 97 02/16/19 01:48 58 L 24 157/110 H 100 02/16/19 01:30 75 22 162/120 H 98 02/16/19 01:24 73 75 21 169/110 H 162/120 H 98 02/16/19 01:16 78 14 172/110 H 98 02/16/19 01:15 97 02/16/19 01:14 99 02/16/19 01:06 70 18 198/130 H 100 02/16/19 00:58 36.6 C 61 20 185/104 H 100 Code Status & VTE Plan VTE Prophylaxis Plan VTE Prophylaxis will be ordered: Yes Supervising Physician Co-Signing Physician Notes Patient was seen and examined by me personally. I reviewed the chart, the orders and discussed the case in detail with Dr. Irasema Diaz MD. I read this H&P and agree with its contents to entirety. Resident Activity Tracking Resident Involvement: Resident Care Provided Care Provided: Adult Hospital Medicine (1) Hypertension Hypertension type: unspecified Qualified Code(s): I10 - Essential (primary) hypertension
[2019-02-16] MEDS ORDERED: IBUPROFEN 200 MG TAB PO PRN (04:54)
--- NOTE | 2019-02-16 05:13 | Emergency Department Note ---
Entered by Evangelina Mendoza acting as a scribe for History of Present Illness General Chief complaint: Chest Pain Stated complaint: CHEST PAIN,NECK PAIN,WEAKNESS Time Seen by Provider: 02/16/19 01:01 Source: patient History of Present Illness Onset (ago): hour(s) (3.5) Location: chest (substernal) Radiation: neck (right side) and other (right side of jaw) Pain Consistency: + other (persistent ) Maximum Pain Intensity: 7 Current Pain Intensity: 7 Quality: + other (pressure) Associated symptoms: + other (positive shakiness ); no diaphoresis, no nausea/vomiting and no shortness of breath The patient is a 34 year old female who presents to the Emergency Room with complaints of persistent substernal chest pain that began at 2130, 3.5 hours prior to arrival. The patient describes this pain as a pressure and rates it at 7/10. She states that this pain radiates up into the right side of her neck and jaw. The patient states that she believed that this was indigestion but it would not go resolve. The patient denies shortness of breath, nausea, vomiting, and sweating. She reports feeling shaky currently. 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 She states that she has a history of high blood pressure and is on Lisinopril. The patient denies any personal cardiac history, but states that her mother had a heart valve replacement in her early 50s, her grandfather had multiple MIs with the first one being before age 50, and her grandmother had CHF and a cardiac arrhythmia. Home Medications Home Medications Medication Instructions Recorded Confirmed Type lisinopril 40 mg tablet 40 mg PO DAILY #30 tab 10/11/18 02/16/19 Rx ibuprofen 200 mg tablet 400 mg PO Q6H PRN tab 01/18/19 02/16/19 History gabapentin 100 mg capsule 100 mg PO BID 01/19/19 02/16/19 History Allergies Allergy/AdvReac Type Severity Reaction Status Date / Time cinnamon Allergy Severe THROAT Verified 02/16/19 01:13 SWELLS,RESP DIFFICULTY adhesive Allergy Intermediate REDNESS,BLISTERS Verified 02/16/19 01:13 WITH PAPER TAPE ketorolac AdvReac Intermediate GI SYMPTOMS Verified 02/16/19 01:13 lactose AdvReac Intermediate GI SYMPTOMS Verified 02/16/19 01:13 morphine AdvReac Intermediate SEVERE Verified 02/16/19 01:13 NAUSEA/VOMITING naproxen AdvReac Intermediate GI Verified 02/16/19 01:13 SYMPTOMS,SYNCOPAL EPISODES Sweetness Enhancer Allergy Intermediate ARTIFICIAL Uncoded 02/16/19 01:13 SWEETENERS-MOUTH SWELLING Past Med/Surg History Medical History Thyroid nodule (Chronic) Migraine headache (Acute) Lactose intolerance (Acute) Chronic cholecystitis (Acute) Benign essential hypertension (Chronic) Family History Grandmother (Maternal) Skin cancer Grandmother (Paternal) Lung cancer Grandmother Congestive heart failure Cardiac arrhythmia Grandfather Myocardial infarction Mother No problems noted. Social History Preferred Language: Moldovan Beliefs That Will Affect Care: None marital status: Current Living Situation: Spouse current occupational status: employed current occupation: insurance account manager Other Information That Helps Us Care for You: No Feels Safe at Home: Yes Safety Concerns: Feels Safe At This Time Smoking Status: Current every day smoker Cigarettes Per Day: 10 ; Second Hand Exposure: No ; Hx Alcohol Use: Yes Alcohol type: wine Alcohol Intake Frequency: Rarely Hx Substance Use: No caffeine: Yes (coffee) Dental Care, Regularly: Yes Physical Activity Frequency: Does not Exercise Seatbelt Use: always Sunscreen Use: Yes Review of Systems See HPI for pertinent positives & negatives. and A total of 10 systems reviewed and were otherwise negative Physical Exam Vital Signs Vital Signs - 24 hr 02/16/19 00:58 02/16/19 01:06 02/16/19 01:14 Temperature 36.6 C Temperature Source Oral Sepsis Recent Fever Within 48 Hours No Sepsis New/Unexplained Change in Mental Status No Sepsis Action Taken by Nursing No Action Required Pulse Rate 61 70 Pulse Rate [Right Brachial] Pulse Rate from SpO2 Sensor 69 Pulse Rhythm [Right Brachial] Pulse Strength [Right Brachial] Respiratory Rate 20 18 Respiratory Effort / Characteristics Respiratory Depth Respiratory Pattern Blood Pressure 185/104 H 198/130 H Blood Pressure [Right Arm] Blood Pressure Mean 131 152 Blood Pressure Mean [Right Arm] Blood Pressure Position [Right Arm] Pulse Oximetry 100 100 99 Oxygen Delivery Method Room Air Room Air 02/16/19 01:15 02/16/19 01:16 02/16/19 01:24 Temperature Temperature Source Sepsis Recent Fever Within 48 Hours Sepsis New/Unexplained Change in Mental Status Sepsis Action Taken by Nursing Pulse Rate 78 73 Pulse Rate [Right Brachial] 75 Pulse Rate from SpO2 Sensor 79 Pulse Rhythm [Right Brachial] Regular Pulse Strength [Right Brachial] Normal Respiratory Rate 14 21 Respiratory Effort / Characteristics Non-Labored Spontaneous Respiratory Depth Normal Respiratory Pattern Regular Blood Pressure 172/110 H 169/110 H Blood Pressure [Right Arm] 162/120 H Blood Pressure Mean 130 129 Blood Pressure Mean [Right Arm] 134 Blood Pressure Position [Right Arm] Lying Pulse Oximetry 97 98 98 Oxygen Delivery Method Room Air Room Air 02/16/19 01:30 02/16/19 01:48 02/16/19 02:00 Temperature Temperature Source Sepsis Recent Fever Within 48 Hours Sepsis New/Unexplained Change in Mental Status Sepsis Action Taken by Nursing Pulse Rate 75 58 L 84 Pulse Rate [Right Brachial] Pulse Rate from SpO2 Sensor 74 60 82 Pulse Rhythm [Right Brachial] Pulse Strength [Right Brachial] Respiratory Rate 22 24 26 H Respiratory Effort / Characteristics Respiratory Depth Respiratory Pattern Blood Pressure 162/120 H 157/110 H 160/95 H Blood Pressure [Right Arm] Blood Pressure Mean 134 125 116 Blood Pressure Mean [Right Arm] Blood Pressure Position [Right Arm] Pulse Oximetry 98 100 97 Oxygen Delivery Method 02/16/19 02:30 02/16/19 02:42 02/16/19 03:00 Temperature Temperature Source Sepsis Recent Fever Within 48 Hours Sepsis New/Unexplained Change in Mental Status Sepsis Action Taken by Nursing Pulse Rate 81 71 74 Pulse Rate [Right Brachial] Pulse Rate from SpO2 Sensor 79 72 75 Pulse Rhythm [Right Brachial] Pulse Strength [Right Brachial] Respiratory Rate 25 H 22 23 Respiratory Effort / Characteristics Respiratory Depth Respiratory Pattern Blood Pressure 152/102 H 151/109 H 152/107 H Blood Pressure [Right Arm] Blood Pressure Mean 118 123 122 Blood Pressure Mean [Right Arm] Blood Pressure Position [Right Arm] Pulse Oximetry 97 98 97 Oxygen Delivery Method 02/16/19 03:30 02/16/19 04:00 Temperature Temperature Source Sepsis Recent Fever Within 48 Hours Sepsis New/Unexplained Change in Mental Status Sepsis Action Taken by Nursing Pulse Rate 78 80 Pulse Rate [Right Brachial] Pulse Rate from SpO2 Sensor 79 79 Pulse Rhythm [Right Brachial] Pulse Strength [Right Brachial] Respiratory Rate 20 24 Respiratory Effort / Characteristics Respiratory Depth Respiratory Pattern Blood Pressure 154/101 H 140/98 Blood Pressure [Right Arm] Blood Pressure Mean 118 112 Blood Pressure Mean [Right Arm] Blood Pressure Position [Right Arm] Pulse Oximetry 97 97 Oxygen Delivery Method HEENT: Head - normocephalic and atraumatic Pupils are equal, round, and reactive to light. Extraocular eye muscles are intact, and sclera are anicteric. Nose - moist nasal mucosa without discharge. Mouth - moist buccal mucosa. Oropharynx is nonerythematous and there is no tonsillar exudate or edema noted. Neck: Supple; no JVD, nuchal rigidity, cervical lymphadenopathy, or auscultated bruits. Heart: Bradycardic rate and regular rhythm. There is a normal S1 and S2 with no murmurs, clicks, or gallops appreciated. Lungs: Clear to auscultation bilaterally with no wheezes, rales, or rhonchi. Abdomen: Soft, completely nontender, nondistended, with good bowel sounds. There are no palpable pulsatile masses or hepatosplenomegaly. There is no guarding, rigidity, or rebound noted. Extremities: No evidence of cyanosis, clubbing, or edema. There are easily palpable peripheral pulses. Skin: warm and dry with good turgor and no rashes. Course 0104: Past medical records reviewed. The patient was evaluated in room A2. A complete history and physical exam was performed. Laboratory studies were drawn as above. The patient was observed on the quality assurance monitor chassis and pulse oximeter. She remained in a normal sinus rhythm. A twelve-lead EKG was obtained. 0109: Ordered Nitrostat 0.4 mg SL. 0112: Ordered Ativan 1 mg in 2 mls @ 2mls/min IV. 0113: Ordered Nitrostat 0.4 mg SL. 0132: I checked on and updated the patient on all results so far. She was given a third dose of nitroglycerin which took her chest discomfort from a 7/10 to a 3/10 0158: Ordered Fentanyl Citrate 100 mcg IV and Zofran 4 mg IV. 0206: Ordered Aspirin 243 mg PO. 0232: Ordered Nitro-Bid 2% 1 inch EXT. 0249: I checked on and updated the patient. 0308: Upon reevaluation, the patient's pain is at a 3/10. The patient was initially refusing to stay because she has work in the morning but her talked the patient into being further evaluated. 0330: I discussed the case with Dr. [facility] Hospitalist who accepts the patient for further evaluation. Administered Medications Discontinued Medications Aspirin (Aspirin Chew) 243 mg PO NOW STA Stop: 02/16/19 02:06 Last Admin: 02/16/19 02:11 Dose: 243 mg Documented by: [id number] Fentanyl Citrate (Fentanyl Citrate) 100 mcg IV NOW STA Stop: 02/16/19 01:58 Last Admin: 02/16/19 02:01 Dose: 100 mcg Documented by: [id number] Lorazepam (Ativan) 1 mg in 2 mls @ 2 mls/min IV NOW STA Stop: 02/16/19 01:12 Last Admin: 02/16/19 01:19 Dose: 2 mls/min Documented by: [id number] Nitroglycerin (Nitrostat) Confirm Administered Dose 0.4 mg .ROUTE .STK-MED ONE Stop: 02/16/19 01:09 Last Admin: 02/16/19 01:10 Dose: 0.4 mg Documented by: [id number] Nitroglycerin (Nitrostat) 0.4 mg SL NOW STA Stop: 02/16/19 01:13 Last Admin: 02/16/19 01:19 Dose: 0.4 mg Documented by: [id number] Nitroglycerin (Nitro-Bid 2%) 1 inch EXT NOW ONE Stop: 02/16/19 02:32 Last Admin: 02/16/19 02:41 Dose: 1 inch Documented by: [id number] Ondansetron HCl (Zofran) 4 mg IV NOW STA Stop: 02/16/19 01:58 Last Admin: 02/16/19 02:01 Dose: 4 mg Documented by: [id number] Medical Decision Making Differential Diagnosis Differential diagnoses include anxiety, STEMI, acute coronary syndrome, aortic dissection, and others were considered. Medical Records Attestation: I reviewed the patient's medical records. Home Medications Current Medication List: was personally reviewed by me Laboratory Data Attestation: I reviewed the patient's lab results. Result diagrams: 02/16/19 01:24 02/16/19 01:24 Lab Results 02/16/19 02/16/19 02/16/19 Range/Units 01:24 01:24 01:24 WBC 12.37 H (4.8-10.8) K/uL RBC 4.59 (4.2-5.4) M/uL Hgb 14.2 (12.0-16.0) g/dL Hct 41.8 (37-47) % MCV 91.1 (80-100) fL MCH 30.9 (25-34) pg MCHC 34.0 (32-36) g/dL RDW Std Deviation 40.9 (36.4-46.3) fL RDW Coeff of Rafi 12.2 (11.5-14.5) % Plt Count 202 (130-400) K/uL MPV 9.7 (7.4-10.4) fL Immature Gran % (Auto) 0.3 % Neut % (Auto) 50.5 % Lymph % (Auto) 39.5 % Coke % (Auto) 6.6 % Eos % (Auto) 2.5 % Baso % (Auto) 0.6 % Immature Gran # (Auto) 0.04 H (0.00-0.02) K/uL Neut # (Auto) 6.25 (1.4-6.5) K/uL Lymph # (Auto) 4.88 H (1.2-3.4) K/uL Coke # (Auto) 0.82 H (0.11-0.59) K/uL Eos # (Auto) 0.31 (0-0.5) K/uL Baso # (Auto) 0.07 (0-0.2) K/uL D-Dimer (0-500) ug/L FEU Sodium 142 (136-145) mmol/L Potassium 3.4 L (3.5-5.1) mmol/L Chloride 109 H (98-107) mmol/L Carbon Dioxide 24 (21-32) mmol/L Anion Gap 9.0 (3-11) BUN 17 (7-18) mg/dl Creatinine 1.03 (0.6-1.2) mg/dl Est Cr Clr Drug Dosing 88.8 ml/min Est GFR ( Amer) 81.6 Est GFR (Non-Af Amer) 70.4 BUN/Creatinine Ratio 16.2 (10-20) Glucose 132 H (70-99) mg/dl Calcium 8.8 (8.5-10.1) mg/dl Total Bilirubin 0.6 (0.2-1) mg/dl AST 11 L (15-37) U/L ALT 26 (12-78) U/L Alkaline Phosphatase 86 (45-117) U/L Troponin I < 0.015 (0-0.045) ng/ml Total Protein 6.9 (6.4-8.2) gm/dl Albumin 3.9 (3.4-5.0) gm/dl Globulin 3.0 (2.5-4.0) gm/dl Albumin/Globulin Ratio 1.3 (0.9-2) Lipase 207 (73-393) U/L Salicylates 4.0 (2.8-20) mg/dl 02/16/19 Range/Units 01:24 WBC (4.8-10.8) K/uL RBC (4.2-5.4) M/uL Hgb (12.0-16.0) g/dL Hct (37-47) % MCV (80-100) fL MCH (25-34) pg MCHC (32-36) g/dL RDW Std Deviation (36.4-46.3) fL RDW Coeff of Rafi (11.5-14.5) % Plt Count (130-400) K/uL MPV (7.4-10.4) fL Immature Gran % (Auto) % Neut % (Auto) % Lymph % (Auto) % Coke % (Auto) % Eos % (Auto) % Baso % (Auto) % Immature Gran # (Auto) (0.00-0.02) K/uL Neut # (Auto) (1.4-6.5) K/uL Lymph # (Auto) (1.2-3.4) K/uL Coke # (Auto) (0.11-0.59) K/uL Eos # (Auto) (0-0.5) K/uL Baso # (Auto) (0-0.2) K/uL D-Dimer < 190 (0-500) ug/L FEU Sodium (136-145) mmol/L Potassium (3.5-5.1) mmol/L Chloride (98-107) mmol/L Carbon Dioxide (21-32) mmol/L Anion Gap (3-11) BUN (7-18) mg/dl Creatinine (0.6-1.2) mg/dl Est Cr Clr Drug Dosing ml/min Est GFR ( Amer) Est GFR (Non-Af Amer) BUN/Creatinine Ratio (10-20) Glucose (70-99) mg/dl Calcium (8.5-10.1) mg/dl Total Bilirubin (0.2-1) mg/dl AST (15-37) U/L ALT (12-78) U/L Alkaline Phosphatase (45-117) U/L Troponin I (0-0.045) ng/ml Total Protein (6.4-8.2) gm/dl Albumin (3.4-5.0) gm/dl Globulin (2.5-4.0) gm/dl Albumin/Globulin Ratio (0.9-2) Lipase (73-393) U/L Salicylates (2.8-20) mg/dl Imaging Data Attestation: I personally reviewed and interpreted this imaging study as follows: My Impression: CHEST X-RAY 1 VIEW: Narrow mediastinum. No cardiomegaly. No obvious pulmonary pathology. ECG Data Attestation: I personally reviewed and interpreted this ECG as follows: Indication: + chest pain Rate (beats per minute): 55 Rhythm: + sinus bradycardia ECG ST segments: + ST depression ECG Findings: + Other (findings concerning for ischemia ) Additional Comments: REPEAT: Normal sinus rhythm with a rate of 73. ST depression has resolved in lead I but remains in aVL. No PACs, no PVCs. Findings concerning for ischemia. Blood Pressure Blood Pressure Findings: Elevated blood pressure Blood Pressure Disposition: further management by hospitalist JESSICA Narrative The patient is a 34 year old female who presents to the Emergency Room with complaints of persistent chest pain that began at 2130, 3.5 hours prior to arrival. The patient has some concerning EKG findings along with a history of hypertension, obesity, smoking, and a family history of heart disease. Her heart score is 4. The patient remains somewhat hypertensive. The multiple doses of nitroglycerin sublingual and nitroglycerin paste has brought the patient's blood pressure down. The patient's presentation is concerning for cardiac ischemia. The patient will require further inpatient evaluation. I discussed the case with the [facility] Hospitalist and they will evaluate for further management. Impression & Plan Substernal chest pain, Hypertension, Acute electrocardiogram changes Discharge Plan Visit Data *Final* Discharge Date/Time: 02/16/19 04:28 Chief Complaint: Chest Pain Stated Complaint: CHEST PAIN,NECK PAIN,WEAKNESS ED Provider: Samia Fiore Discharge Problem: Substernal chest pain, Hypertension, Acute electrocardiogram changes Patient Disposition: Admitted As Inpatient Discharge Instructions Interventions: ED Discharge Assessment Last Done: 02/16/19 04:28 Discharge Problem: Hypertension Qualifiers: Hypertension type: unspecified Qualified Code(s): I10 - Essential (primary) hypertension The scribe's documentation has been prepared under my direction and personally reviewed by me in its entirety. I confirm that the note above accurately reflects all work, treatment, procedures, and medical decision making performed by me.
--- NOTE | 2019-02-16 07:14 | XRay Report ---
XR chest 1V portable CLINICAL HISTORY: 34 years-old Female presenting with Chest Pain. TECHNIQUE: Portable upright AP view of the chest was obtained. COMPARISON: 06/26/2015. FINDINGS: Cardiomediastinal silhouette normal. No focal opacity. No large effusion or pneumothorax. Osseous str uctures normal. Upper abdomen normal. IMPRESSION: 1. No acute cardiopulmonary disease. Electronically signed by: Bright Bunch M.D. 02/16/2019 7:13 AM
[2019-02-16] MEDS: ACETAMINOPHEN 325 MG TAB PO PRN ×2 (07:50→17:50)
[2019-02-16] MEDS ORDERED: fentaNYL citrate 100 MCG/2 ML VIAL IV ONE (08:29)
[2019-02-16] MEDS ORDERED: GABAPENTIN 100 MG CAP PO SCH (09:00)
[2019-02-16] MEDS: LISINOPRIL 40 MG TAB PO SCH (09:39)
[2019-02-16] MEDS ORDERED: HEPARIN SODIUM/DEXTROSE 25,000 UNITS/500 ML BAG IV SCH ×2 (09:45→10:35)
[2019-02-16] MEDS ORDERED: Heparin IV Standard *NO* Bolus IV SCH (10:08)
[2019-02-16] MEDS ORDERED: POTASSIUM CHLORIDE 20 MEQ TABCR PO STA (10:16)
[2019-02-16 10:32] LABS: Partial Thromboplastin Time 27.5 Seconds (21.0-31.0)
--- NOTE | 2019-02-16 10:57 | Cardiology Consultation ---
Date of Consultation February 16, 2019 Assessment & Plan (1) Substernal chest pain: The patient may have suffered an acute coronary syndrome. Total duration of her discomfort was approximately 2.5 hours, and she demonstrates some minor ST changes in the high lateral leads. Her troponin is now up to 4.73. We will initiate intravenous heparin and proceed with a cardiac catheterization today. (2) Elevated troponin: As above, her initial troponin was undetectable with a follow-up value up to 4.73. (3) Hypertension: Adequate control on current regimen. History of Present Illness Attending Physician: Mook Roe DO History of Present Illness Mrs. Olson is a 34-year-old female admitted earlier today with a chest pain syndrome. This consultation is being performed to assist in her cardiac management. The patient was in her usual state of health until approximately 10:30 p.m. last evening. She had the abrupt onset of mid substernal chest discomfort which she described as a fire in her chest. This radiated to her neck and jaw. There were no other associated symptoms such as shortness of breath, nausea, vomiting, or diaphoresis. The patient presented to the emergency room at approximately 1 a.m. today. Her initial troponin was undetectable, and her EKG noted some subtle lateral ST depression.. Her symptoms resolved with the administration of sublingual nitroglycerin and fentanyl. Unfortunately, her follow-up troponin was elevated at 4.73. The patient has never experienced exertional chest pain or limiting dyspnea. She further denies syncope, presyncope, PND, orthopnea, palpitations, lower extremity edema, and claudication. The patient does carry history of hypertension and was started on lisinopril during the spring of this year. Blood pressures have been well controlled at home. Currently, patient is resting comfortably in bed and without complaints. Her is at the bedside. Past medical and surgical history 1. Hypertension 2. GERD 3. Migraine headaches 4. Thyroid nodule 5. Tarsal tunnel release 6. Total abdominal hysterectomy 7. Cholecystectomy Social history The patient is and lives with her . 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 Smokes 1/2 pack of cigarettes daily. Has been a smoker for 20 years. Rare alcohol Family history Mother is 62 and healthy. Did have a valve replacement at age 50 for a congenital condition. Father is 60 with hypertension No siblings No early coronary artery disease Review of systems A 10 point review of systems was negative except for that described above. Allergies Allergy/AdvReac Type Severity Reaction Status Date / Time cinnamon Allergy Severe THROAT Verified 02/16/19 01:13 SWELLS,RESP DIFFICULTY adhesive Allergy Intermediate REDNESS,BLISTERS Verified 02/16/19 01:13 WITH PAPER TAPE ketorolac AdvReac Intermediate GI SYMPTOMS Verified 02/16/19 01:13 lactose AdvReac Intermediate GI SYMPTOMS Verified 02/16/19 01:13 morphine AdvReac Intermediate SEVERE Verified 02/16/19 01:13 NAUSEA/VOMITING naproxen AdvReac Intermediate GI Verified 02/16/19 01:13 SYMPTOMS,SYNCOPAL EPISODES Sweetness Enhancer Allergy Intermediate ARTIFICIAL Uncoded 02/16/19 01:13 SWEETENERS-MOUTH SWELLING Home Medications Home Medications Medication Instructions Recorded Confirmed Type lisinopril 40 mg tablet 40 mg PO DAILY #30 tab 10/11/18 02/16/19 Rx ibuprofen 200 mg tablet 400 mg PO Q6H PRN tab 01/18/19 02/16/19 History gabapentin 100 mg capsule 100 mg PO BID 01/19/19 02/16/19 History Patient History Medical History Thyroid nodule (Chronic) Migraine headache (Acute) Lactose intolerance (Acute) Chronic cholecystitis (Acute) Benign essential hypertension (Chronic) Family History Grandmother (Maternal) Skin cancer Grandmother (Paternal) Lung cancer Grandmother Congestive heart failure Cardiac arrhythmia Grandfather Myocardial infarction Mother No problems noted. Social History Preferred Language: Mongolian Beliefs That Will Affect Care: None marital status: Current Living Situation: Spouse current occupational status: employed current occupation: manager customer Feels Safe at Home: Yes Smoking Status: Current every day smoker Cigarettes Per Day: 10 ; Second Hand Exposure: No ; Hx Alcohol Use: Yes Alcohol type: wine Alcohol Intake Frequency: Rarely Hx Substance Use: No caffeine: Yes (coffee) Dental Care, Regularly: Yes Physical Activity Frequency: Does not Exercise Seatbelt Use: always Sunscreen Use: Yes Physical Exam Physical Exam: In general this is a well-developed well-nourished white female in no acute distress. HEENT exam is negative. Neck is supple with full carotid upstrokes. There are no carotid bruits. Jugular venous pressure is flat at 90. There is no thyromegaly. Cardiovascular exam reveals a regular rhythm w ith a normal S1 and S2. No S3, S4, or murmurs are noted. Lungs are clear without rales, rhonchi, or wheezes. Abdomen is soft and nontender without bruits. Extremities reveal intact radial artery and posterior tibial pulses bilaterally. There is no peripheral edema. Results & Data Vital Signs (Past 12 Hours) Vital Signs Temp Pulse Pulse Resp BP BP Pulse Ox 02/16/19 07:24 37.1 C 67 20 111/73 96 02/16/19 04:40 37.1 C 60 20 144/83 H 98 02/16/19 04:30 72 23 139/91 97 02/16/19 04:00 80 24 140/98 97 02/16/19 03:30 78 20 154/101 H 97 02/16/19 03:00 74 23 152/107 H 97 02/16/19 02:42 71 22 151/109 H 98 02/16/19 02:30 81 25 H 152/102 H 97 02/16/19 02:00 84 26 H 160/95 H 97 02/16/19 01:48 58 L 24 157/110 H 100 02/16/19 01:30 75 22 162/120 H 98 02/16/19 01:24 73 75 21 169/110 H 162/120 H 98 02/16/19 01:16 78 14 172/110 H 98 02/16/19 01:15 97 02/16/19 01:14 99 02/16/19 01:06 70 18 198/130 H 100 02/16/19 00:58 36.6 C 61 20 185/104 H 100 Laboratory Results CBC notes a hemoglobin of 14.2, hematocrit 41.8, white count 12.3, and platelet count of [id number]. Electrolytes note a sodium of 142, potassium 3.4, chloride 109, bicarb 24, BUN 17, and creatinine of 1.03. Initial troponin was undetectable at less than 0.015 with a follow-up value of 4.73. Diagnostic Findings EKG notes sinus rhythm and ST depression in the high lateral leads. alarm security or surveillance monitor is benign. Chest x-ray shows no acute disease. PG Care Time/CCT Total # of Minutes Spent Total Time Spent with Patient: Total time spent is greater than 50% in coordination of care (as documented) at patient's floor/unit and/or counseling patient: (1) Hypertension Hypertension type: unspecified Qualified Code(s): I10 - Essential (primary) hypertension
[2019-02-16] MEDS ORDERED: Nursing to Pharmacy Communication ONE (12:47)
[2019-02-16] MEDS ORDERED: fentaNYL citrate 100 MCG/2 ML VIAL ONE ×2 (14:31→15:10)
[2019-02-16] MEDS ORDERED: NITROGLYCERIN/D5W 100MCG/ML 20ML SYR ONE (14:31)
[2019-02-16] MEDS ORDERED: HEPARIN (PORCINE) 1000 UNIT/ML 10 ML (CATH LAB USE ONLY) ONE (14:31)
[2019-02-16] MEDS ORDERED: NiCARDipine HCL INJ 2.5 MG/ML 10 ML AMP ONE (14:31)
[2019-02-16] MEDS: MIDAZOLAM HCL 1 MG/ML 2ML VIAL ONE ×2 (15:02→17:23)
[2019-02-16] MEDS ORDERED: MIDAZOLAM HCL 1 MG/ML 2ML VIAL ONE (15:10)
[2019-02-16] MEDS ORDERED: PRASugrel TAB 10 MG TAB PO ONE (15:34)
--- NOTE | 2019-02-16 15:52 | Hospitalist Progress Note ---
Date of Service February 16, 2019 Assessment & Plan (1) Substernal chest pain: Dionne is a 34-year-old female with a past medical history of hypertension, GERD, neuropathic pain, migraines, and thyroid nodules who presented to the emergency department due to chest pain. Chest pain/ACS -initial EKG with ST depressions, most prominent in leads I and aVL, improved on repeat EKG -reports of another episode of CP 11/6 AM- EKG: minor ST changes in the high lateral leads - initial troponin was undetectable. Repeat trop increased to 4.73 -plan for cardiac cath today. Report pending -IV heparin -cont on telemetry -D-dimer negative -Chest x-ray normal -ECHO: LV systolic function is normal. No regional wall motion abnormalities. Borderline concentric LVH. EF 60-65%. No sig valvular pathology Hypertension -Continue home lisinopril Neuropathic pain -Per patient, she has a history of neuropathic pain in her foot -Continue gabapentin Thyroid nodule -Per review of outpatient records, her thyroid function has been within normal limits and her thyroid ultrasound was normal FEN/GI: HH Diet CODE STATUS: Full DVT prophylaxis: Heparin, SCDs Disposition: Tele Supervising Physician Co-Signing Physician Notes I saw the patient the resident physician and confirmed gordon portion of the history and physical exam. I agree with the impression and plan as detailed above. 34-year-old female admitted early this morning with chest pain and EKG changes and elevated troponin. Plan is for cardiac catheterization later today. Discussed with cardiology. Subjective 34 yo F found in bed this AM with report from RN that pt has CP similar to what brought her into ER initially. Associated diaphoresis, non radiating. 12 lead ordered and showed inferior ischemia. Pain relieved with fentanyl. Repeat trop 4.73. Cardiology consulted and plan for rn labor and delivery. Pt ok with plan. No other acute concerns or complaints. Review of Systems Review of Systems: All systems reviewed & are unremarkable except as noted in HPI & below Physical Exam Constitutional: WD/WN, vitals as above Eyes: PERRL, conjunctivae normal, anicteric sclerae ENMT: external ear and nose normal, oropharynx normal Respiratory: normal respiratory effort, lungs clear to auscultation Cardiovascular: RRR, no murmur, no edema Chest (Breasts): Additional Comments: Moderate tender to palpation over sternum Gastrointestinal (Abdomen): normal bowel sounds, soft, nontender, no hepatosplenomegaly Skin: no rashes, warm and dry Psychiatric: A+Ox3, euthymic affect Results & Data Vital Signs (Past 12 Hours) Vital Signs Temp Pulse Pulse Resp BP BP Pulse Ox 02/16/19 15:40 67 16 121/80 95 02/16/19 11:10 36.8 C 64 17 120/71 98 02/16/19 07:24 37.1 C 67 20 111/73 96 02/16/19 04:40 37.1 C 60 20 144/83 H 98 02/16/19 04:30 72 23 139/91 97 02/16/19 04:00 80 24 140/98 97 Laboratory Results Laboratory Results - last 24 hr 02/16/19 02/16/19 02/16/19 01:24 01:24 01:24 WBC 12.37 H RBC 4.59 Hgb 14.2 Hct 41.8 MCV 91.1 MCH 30.9 MCHC 34.0 RDW Std Deviation 40.9 RDW Coeff of Rafi 12.2 Plt Count 202 MPV 9.7 Immature Gran % (Auto) 0.3 Neut % (Auto) 50.5 Lymph % (Auto) 39.5 Lynn % (Auto) 6.6 Eos % (Auto) 2.5 Baso % (Auto) 0.6 Immature Gran # (Auto) 0.04 H Neut # (Auto) 6.25 Lymph # (Auto) 4.88 H Lynn # (Auto) 0.82 H Eos # (Auto) 0.31 Baso # (Auto) 0.07 APTT PTT Ratio D-Dimer Sodium 142 Potassium 3.4 L Chloride 109 H Carbon Dioxide 24 Anion Gap 9.0 BUN 17 Creatinine 1.03 Est Cr Clr Drug Dosing 88.8 Est GFR ( Amer) 81.6 Est GFR (Non-Af Amer) 70.4 BUN/Creatinine Ratio 16.2 Glucose 132 H Calcium 8.8 Total Bilirubin 0.6 AST 11 L ALT 26 Alkaline Phosphatase 86 Troponin I < 0.015 Total Protein 6.9 Albumin 3.9 Globulin 3.0 Albumin/Globulin Ratio 1.3 Lipase 207 Salicylates 4.0 02/16/19 02/16/19 02/16/19 01:24 07:09 10:12 WBC RBC Hgb Hct MCV MCH MCHC RDW Std Deviation RDW Coeff of Rafi Plt Count MPV Immature Gran % (Auto) Neut % (Auto) Lymph % (Auto) Lynn % (Auto) Eos % (Auto) Baso % (Auto) Immature Gran # (Auto) Neut # (Auto) Lymph # (Auto) Lynn # (Auto) Eos # (Auto) Baso # (Auto) APTT 27.5 PTT Ratio 1.0 D-Dimer < 190 Sodium Potassium Chloride Carbon Dioxide Anion Gap BUN Creatinine Est Cr Clr Drug Dosing Est GFR ( Amer) Est GFR (Non-Af Amer) BUN/Creatinine Ratio Glucose Calcium Total Bilirubin AST ALT Alkaline Phosphatase Troponin I 4.730 H* Total Protein Albumin Globulin Albumin/Globulin Ratio Lipase Salicylates 02/16/19 12:51 WBC RBC Hgb Hct MCV MCH MCHC RDW Std Deviation RDW Coeff of Rafi Plt Count MPV Immature Gran % (Auto) Neut % (Auto) Lymph % (Auto) Lynn % (Auto) Eos % (Auto) Baso % (Auto) Immature Gran # (Auto) Neut # (Auto) Lymph # (Auto) Lynn # (Auto) Eos # (Auto) Baso # (Auto) APTT PTT Ratio D-Dimer Sodium Potassium Chloride Carbon Dioxide Anion Gap BUN Creatinine Est Cr Clr Drug Dosing Est GFR ( Amer) Est GFR (Non-Af Amer) BUN/Creatinine Ratio Glucose Calcium Total Bilirubin AST ALT Alkaline Phosphatase Troponin I 12.200 H* Total Protein Albumin Globulin Albumin/Globulin Ratio Lipase Salicylates Medications Administered Current Inpatient Medications Acetaminophen (Tylenol) 650 mg PO Q4H PRN PRN Reason: Pain or Fever Stop: 03/18/19 04:53 Last Admin: 02/16/19 07:50 Dose: 650 mg Documented by: Gabapentin (Neurontin) 100 mg PO DAILY@1500,2200 [facility] Stop: 03/18/19 08:59 Heparin Sodium/Dextrose (Heparin Sodium/Dextrose) 25,000 units in 500 mls @ 26 mls/hr IV .[id number] [facility]; Protocol Stop: 03/18/19 10:34 Last Admin: 02/16/19 10:41 Dose: 1,300 units/hr, 26 mls/hr Documented by: Ibuprofen (Advil) 400 mg PO Q6H PRN PRN Reason: Pain Stop: 03/18/19 04:53 Lisinopril (Zestril) 40 mg PO DAILY [facility] Stop: 03/18/19 08:59 Last Admin: 02/16/19 09:39 Dose: 40 mg Documented by: Resident Activity Tracking Resident Involvement: Resident Care Provided Care Provided: Adult Hospital Medicine
--- NOTE | 2019-02-16 15:56 | Pre Anesthesia Assessment ---
Date of Service February 16, 2019 Pre Sedation Assessment Vital Signs Temp Pulse Pulse Resp BP BP Pulse Ox 02/16/19 15:40 67 16 121/80 95 02/16/19 11:10 98.2 F 64 17 120/71 98 02/16/19 07:24 98.8 F 67 20 111/73 96 02/16/19 04:40 98.8 F 60 20 144/83 H 98 02/16/19 04:30 72 23 139/91 97 02/16/19 04:00 80 24 140/98 97 02/16/19 03:30 78 20 154/101 H 97 02/16/19 03:00 74 23 152/107 H 97 02/16/19 02:42 71 22 151/109 H 98 02/16/19 02:30 81 25 H 152/102 H 97 02/16/19 02:00 84 26 H 160/95 H 97 02/16/19 01:48 58 L 24 157/110 H 100 02/16/19 01:30 75 22 162/120 H 98 02/16/19 01:24 73 75 21 169/110 H 162/120 H 98 02/16/19 01:16 78 14 172/110 H 98 02/16/19 01:15 97 02/16/19 01:14 99 02/16/19 01:06 70 18 198/130 H 100 02/16/19 00:58 97.9 F 61 20 185/104 H 100 Cardiovascular RRR, no murmur, no edema Respiratory normal respiratory effort, lungs clear to auscultation Pre-Sedation Airway Assessment Smoking Status: Current every day smoker Hx Sleep Apnea: No Hx Difficult Intubation: No Short, Thick Neck: No Thyromental Distance: > or= 3.5 Finger Breadths Mallampati Class: III ASA: ASA3 NPO Status Date of Last Intake of Fluids: 02/15/19 Procedure Planning Contraindications for Sedation: none Current Medications Reviewed: Yes Notes The planned sedation has been discussed with the patient. Informed Consent was obtained. I have identified the patient, determined the appropriateness of sedation and have assessed the patient immediately prior to the procedure. All medicine(s) and interventions are by my order.
--- NOTE | 2019-02-16 15:56 | Post Anesthesia Assessment ---
Date of Service February 16, 2019 Post Sedation Assessment Vital Signs Temp Pulse Pulse Resp BP BP Pulse Ox 02/16/19 15:40 67 16 121/80 95 02/16/19 11:10 98.2 F 64 17 120/71 98 02/16/19 07:24 98.8 F 67 20 111/73 96 02/16/19 04:40 98.8 F 60 20 144/83 H 98 02/16/19 04:30 72 23 139/91 97 02/16/19 04:00 80 24 140/98 97 02/16/19 03:30 78 20 154/101 H 97 02/16/19 03:00 74 23 152/107 H 97 02/16/19 02:42 71 22 151/109 H 98 02/16/19 02:30 81 25 H 152/102 H 97 02/16/19 02:00 84 26 H 160/95 H 97 02/16/19 01:48 58 L 24 157/110 H 100 02/16/19 01:30 75 22 162/120 H 98 02/16/19 01:24 73 75 21 169/110 H 162/120 H 98 02/16/19 01:16 78 14 172/110 H 98 02/16/19 01:15 97 02/16/19 01:14 99 02/16/19 01:06 70 18 198/130 H 100 02/16/19 00:58 97.9 F 61 20 185/104 H 100 Recovery Score Activity: Moves 4 extremities Respiration: Deep Breath/Cough Circulation: +/-20% PreAnes Value Consciousness: Fully Awake Oxygen Saturation: O2 needed for >90% Discharge Sedation Level of Care: Fast Track Phase II Post Sedation Plan On clinical assessment, the patient appears to have tolerated the sedation without complications. Patient is recovering as anticipated. Patient will continue to be monitored by nursing and may be discharged when sedation discharge criteria are met per below protocol. Upon Completions of procedure and additional 15 minutes continue every 5 minute vital signs and the P.A.R. score; then discharge to a Phase I or Fast Track to P hase II per the following guidelines: * Discharge Patient to appropriate Phase II area if PAR is 8 or greater or return to pre- procedure baseline. The post - procedure orders will be as directed. * If PAR score is less than 8 or not return to pre-procedure baseline then patient will follow Phase I monitoring till PAR is reached for Phase II. The Phase I may be done in procedure room or may call to secure a Phase I area. * If naloxone or flumazenil are used for reversal, hold in Phase I for continued monitoring from when last reversal dose was given for a minimum of 60 minutes or longer pending the nurse and/or physician discretion of patient condition before discharge to Phase II. Please call the Sedation Physician to re-evaluate and complete post-note for discharge to Phase II area. Do NOT discharge from procedure sedation or Phase 1 until post- sedation evaluation note is complete by procedure /sedation MD Sedation Discharge Instructions to be given to the patient at discharge to home.
[2019-02-16] MEDS ORDERED: SODIUM CHLORIDE 0.9% 1000ML 1,000 ML IV SCH (16:00)
--- NOTE | 2019-02-16 16:08 | Cardiac Catheterization ---
[facility] Data: Mat Sewer Cardiac Status Clinical evaluation leading to the procedure CAD Presenation: Non STEMI Anginal Classification: CCS IV Heart Failure: No Cardiogenic Shock within 24 Hours: No Cardiac Arrest within 24 Hours: No Imaging Studies Past 6 Months: Yes Stress Studies Past 6 Months: No Diagnostic Physicians Name: Ashok Wall MD Status: Elective Closure Device Percutaneous Entry Location: Radial Closure Device: Radial Band Recommendations: PCI without planned CABG PCI Indication: PCI for high risk Non-ANDRES Lesion Segment Name: R-PAV Culprit Artery: Yes Stenosis Prior to Rx (%): 100 Chronic Total Occlusion: No IVUS: No FFR: No Pre-Procedure JOVANNI Flow: 0 Previously Treated Lesion: No Lesion Complexity: Non-High/Non-C Lesion Length (mm): 15 Thrombus Present: Yes Bifurcation Lesion: No Guidewire Across Lesion: Stenosis Post-Procedure (%): 0 Post-Procedure JOVANNI Flow: 3 Devices(s) Deployed: Yes Yes Intraprocedure Events Significant Disection: No Perforation: No Cardiac Cath Procedure Full Procedure Date February 16, 2019 Pre-Procedure Diagnosis Pre-Procedure Diagnosis: Non STEMI AUC Score AUC Score: 8 Post-Procedure Diagnosis Post-Procedure Diagnosis: Severe CAD, Successful PCI and Elevated Intracardiac Pressures Procedure(s) Performed Procedure(s) Performed: Coronary Angiography, Left Heart Cath and Drug Eluting Stent Archeologist Classical Ashok Wall MD Leather Seasoner(s) Jayson Estimated Blood Loss Estimated Blood Loss: 10 Medication(s) Medication(s): Fentanyl, Heparin, Lidocaine 1%, Nicardipine, Nitroglycerin and Versed Summary of Findings Indication: High-risk NSTEMI Access: 6Fr right radial artery Catheters: GALDINO Anand guide Findings: LM - Short, moderate caliber, no significant disease. LAD - Moderate caliber, luminal irregularities, tapers prior to apex. Circumflex - Moderate caliber, luminal irregularities, 30% in mid OM1. Distal circumflex gives off collaterals to R-PLBs. RCA - Large caliber vessel, dominant, 20-30% late-proximal, 30% late-mid, 100% acute thrombotic occlusion of posterior AV branch right after take-off large R- PDA. LVEDP - 13 -- PCI -- Antithrombotic therapy: Heparin, prasugrel Procedure: RCA cannulated with JR4 guide [place] Picker 50 wire passed across lesion into distal vessel R-PAV occlusion predilated with 2.5 compliant balloon Dilated lesion stented with 2.75 x 18 [place] JOHNATHAN Stent post-dilated with 3.0 noncompliant balloon IC vasodilators administered for spasm Post procedure JOVANNI 3 flow, stent well expanded with minimal residual stenosis and no apparent cardiac complications. Arterial Closure: TR Band Summary: 1. Severe single vessel coronary artery disease - Acute on chronic 100% occlusion with thrombus in right posterior AV branch after take-off of R-PDA. Faint left to right collaterals to terminal R-PLB. 2. Normal intracardiac filling pressure 3. Successful PCI of R-PAV branch with single drug-eluting stent (2.75 x 18 mm [place]; post-dilated with 3.0 NC). Recommendations: To PCU for continued monitoring Loaded with Prasugrel 60mg in slab inspector Continue dual-antiplatelet therapy for at least 1 year Continue statin, and ASCVD risk factor modification Consult cardiac Rehab Hemodynamics Rest Ao:: 116/84/98 Final Ao: 113/75/95 LV: 118/13 Recommendations Recommendations: PCI without planned CABG Specimens Specimens: None Radiation Exposure (mGy) 2300 Contrast (mls) 110 Fluids (cc crystalloids) Fluids (cc crystalloids): 85 Drains Drains: none Anesthesia moderate Procedural Complication(s) None Disposition PCU I attest to the content of the Intraoperative Record and any orders documented therein. Any exceptions are noted below.
[2019-02-16] MEDS: GABAPENTIN 100 MG CAP PO SCH ×2 (17:23→19:32)
[2019-02-17 06:14] LABS: Basophils # (auto) 0.05 K/uL (0-0.2); Basophils % (auto) 0.4 %; Eosinophils # (auto) 0.18 K/uL (0-0.5); Eosinophils % (auto) 1.6 %; Hemoglobin 12.9 g/dL (12.0-16.0); Immature Granulocytes # (auto) 0.04 K/uL (0.00-0.02); Immature Granulocytes % (auto) 0.4 %; Lymphocytes # (auto) 3.27 K/uL (1.2-3.4); Lymphocytes % (auto) 28.9 %; Mean Corpuscular Hemoglobin 30.6 pg (25-34); Mean Corpuscular Hgb Conc 33.1 g/dL (32-36); Mean Corpuscular Volume 92.4 fL (80-100); Monocytes # (auto) 0.85 K/uL (0.11-0.59); Monocytes % (auto) 7.5 %; Neutrophils # (auto) 6.91 K/uL (1.4-6.5); Neutrophils % (auto) 61.2 %; Platelet Count 177 K/uL (130-400); RDW Coefficient of Variation 12.4 % (11.5-14.5); RDW Standard Deviation 42.3 fL (36.4-46.3); Red Blood Count 4.22 M/uL (4.2-5.4)
[2019-02-17 06:47] LABS: BUN Creatinine Ratio 12.5 (10-20); Calcium 8.3 mg/dl (8.5-10.1); Creatinine Clr Calc Pharmacy 121.7 ml/min; Est GFR (African American) 119.7; Est GFR (Non-African American) 103.3; Magnesium 2.2 mg/dl (1.8-2.4)
[2019-02-17 07:27] VITALS: O2SAT 96
[2019-02-17] MEDS ORDERED: ASPIRIN 81 MG ECTAB PO SCH (09:00)
[2019-02-17] MEDS ORDERED: ATORVASTATIN 40 MG TAB PO SCH (09:00)
[2019-02-17] MEDS ORDERED: PRASugrel TAB 10 MG TAB PO SCH (09:00)
[2019-02-17] MEDS: LISINOPRIL 40 MG TAB PO SCH (09:54)
--- NOTE | 2019-02-17 10:42 | Discharge Summary ---
Date of Service February 17, 2019 Admission HPI Per Admitting Provider Dionne is a 34-year-old female with a past medical history of hypertension, GERD, neuropathic pain, migraines, and thyroid nodules who presented to the emergency department due to chest pain. She states that the chest pain occurred suddenly, 10:30 PM last evening, while she was trying to sleep. She reports the pain is over the center of her chest, and radiates up her neck into her jaw. She states the pain is 7/10, and describes it as though her chest is on fire. She denies any associated shortness of breath, diaphoresis, nausea, vomiting. She does report that she felt like she was shaking at that time. She states that she had Ativan, nitroglycerin, and fentanyl when she came into the emergency department. She states that the nitroglycerin did not take away her pain, however she does report that she is currently pain-free. She denies any prior history of chest pain. She denies any history of chest pain or shortness of breath on exertion. She reports that she does have a history of heartburn, a nd states that this felt like very severe heartburn, however she has not eaten any foods that may have provoked heartburn lately. She does endorse taking ranitidine daily in the past, however states that since they discontinued it, she has not been taking any daily antacids. Recently, she does endorse feeling lightheaded and dizzy at work, over the last week. She attributed this to not having eaten, and being on her feet all day. Past medical history: Hypertension, GERD, neuropathic pain, migraines, thyroid nodules Past surgical history: Total abdominal hysterectomy, cholecystectomy Medications: Gabapentin, as needed ibuprofen, lisinopril Allergies: Ketorolac, morphine, naproxen Family history: Mother with history of hypertension and valve replacement. Grandfather with history of [place]. Social history: , lives with . Smoker, smokes half pack of cigarettes per day. Principal Diagnosis ACS Discharge Exam Constitutional WD/WN, vitals as above Eyes PERRL, conjunctivae normal, anicteric sclerae ENMT external ear and nose normal, oropharynx normal Respiratory normal respiratory effort, lungs clear to auscultation Cardiovascular RRR, no murmur, no edema Gastrointestinal (Abdomen) normal bowel sounds, soft, nontender, no hepatosplenomegaly Skin no rashes, warm and dry Psychiatric A+Ox3, euthymic affect Discharge Data Allergies Allergy/AdvReac Type Severity Reaction Status Date / Time cinnamon Allergy Severe THROAT Verified 02/16/19 01:13 SWELLS,RESP DIFFICULTY adhesive Allergy Intermediate REDNESS,BLISTERS Verified 02/16/19 01:13 WITH PAPER TAPE ketorolac AdvReac Intermediate GI SYMPTOMS Verified 02/16/19 01:13 lactose AdvReac Intermediate GI SYMPTOMS Verified 02/16/19 01:13 morphine AdvReac Intermediate SEVERE Verified 02/16/19 01:13 NAUSEA/VOMITING naproxen AdvReac Intermediate GI Verified 02/16/19 01:13 SYMPTOMS,SYNCOPAL EPISODES Sweetness Enhancer Allergy Intermediate ARTIFICIAL Uncoded 02/16/19 01:13 SWEETENERS-MOUTH SWELLING Consultations 02/16/19 03:09 ED Decision to Admit Stat 02/16/19 08:05 Consult Cardiology Routine 02/16/19 16:00 Consult Cardiac Rehabilitation Routine Procedures Performed Operation Date: 02/16/19 13:30 Actual Procedures s Cineradiography w/Routine Exam - Reza Wall MD p Cath, Left with Cors and Vent - Reza Wall MD s Drug Eluting Stent SGl Vessel - Reza Wall MD Ordered Studies 02/16/19 12:36 CL Cath Imgs for PACS use only Routine Hospital Course (1) Substernal chest pain: Dionne is a 34-year-old female with a past medical history of hypertension, GERD, neuropathic pain, migraines, and thyroid nodules who presented to the emergency department due to chest pain. The following is the medical Chest pain/ACS -D-dimer negative -Chest x-ray normal -initial EKG with ST depressions, most prominent in leads I and aVL, improved on repeat EKG -reports of another episode of CP 11 AM- EKG: minor ST changes in the high lateral leads - initial troponin was undetectable. Repeat trop increased to 4.73 -02/16 cardiac cath : Successful PCI of R-PAV branch with single drug-eluting stent -ECHO: LV systolic function is normal. No regional wall motion abnormalities. Borderline concentric LVH. EF 60-65%. No sig valvular pathology -pt d/c on DAPT (ASA, Prasugrel), Toprol 25 mg, Lisinopril 20 mg (reduced from 40 mg), Atorvastatin 80 mg -will f/u with cardiology in 1-2 weeks Hypertension -Continue lisinopril reduced to 20 mg as above Neuropathic pain -Per patient, she has a history of neuropathic pain in her foot -Continue gabapentin Thyroid nodule -Per review of outpatient records, her thyroid function has been within normal limits and her thyroid ultrasound was normal DVT prophylaxis: Heparin, SCDs. At time of d/c, pt had no other acute concerns or complaints. Total Time Total Time Spent Total Time Spent (In Minutes): 30 Discharge Plan Discharge Items Patient Disposition: Home - Self-Care Reason For Visit: CHEST PAIN Discharge Diagnosis: ACS Activity: Per Instructions section Lifting: Gradually increase as tolerated Non-emergency contact: Primary Care Provider Call non-emergency contact if: you have any medication questions and your symptoms worsen Follow-up/Referrals: Reza Wall MD [Physician] - 03/03/19 10:00 am (Please, follow up at [facility]iology Office with Dr. Dayo Wall on March 03 at 10:00 am. *The office is located in [address] of [facility]. This is the big building next to this hospital. If you need to change this appointment, call the office at [phone].) Rhea Dong MD [Primary Care Provider] - 02/21/19 4:00 pm (Please, follow up at [facility] with Dr. Dong on ThursdayFebruary 21 at 4:00 pm. *If you need to change this appointment, call the office at [phone].) Diet: Heart Healthy Addtl Attending Provider Instructions: You were admitted for chest pain and found to have acute coronary syndrome. Please follow the below instructions on discharge: -You will have follow up with Cardiology in 1-2 weeks and will be going for cardiac rehab as well. Information about both will be given/called to you. At this visit, they may play around with some of your medication dosages for optimization -please follow up with you PCP on 02/21 -You will continue Lisinopril, but at a reduced dose of 20 mg -In addition, you have new medications of aspirin 81 mg and prasugrel 10 mg, which will be continued for 1 year. In addition, you will also take toprol 25 mg and atorvastatin 80 mg. These all have been sent to your pharmacy -A 10 day work excuse has been written for you -If you have any recurrence of the symptoms of chest pain that brought you into the ER initially, please come back into the ER Pending Studies at Discharge: No Stand-Alone Forms: Call Back Authorization, My [facility], Work/School Release (Inpt), Smoking Cessation Medications and DC Order Prescriptions: New atorvastatin 80 mg tablet 80 mg PO PM Qty: 30 RF: 0 prasugrel 10 mg tablet 10 mg PO .AM Qty: 30 RF: 0 aspirin [Aspir-81] 81 mg tablet,delayed release (DR/EC) 81 mg PO DAILY Qty: 30 RF: 0 lisinopril 20 mg tablet 20 mg PO .AM Qty: 30 RF: 0 metoprolol succinate [Toprol XL] 25 mg tablet extended release 24 hr 25 mg PO DAILY Qty: 30 RF: 0 Continued ibuprofen 200 mg tablet 400 mg PO Q6H PRN (Reason: Pain) RF: 0 gabapentin 100 mg capsule 100 mg PO BID RF: 0 Discontinued lisinopril 40 mg tablet 40 mg PO DAILY Qty: 30 RF: 5 Discharge Orders: Discharge Order (Routine); Ordered 02/17/19 Ordered By: Andrew Person/Other Patient Handouts: Stent Coronary, Heart Attack Dc, PCI Blood Thinners, PCI FU Appt, PCI Lifestyle, PCI Exercise Safe Admission Data Admit Date/Time: 02/16/19 04:08 Attending Provider: Vernon Ariza Admit Provider: Irasema Diaz Primary Care Provider: Rhea Dong Other Providers: Mook Roe ; Perez Morris Other Interventions: Discharge Summary Assessment (RN) Last Done: 02/17/19 11:31 DC Date/Time DO NOT enter until pt leaves facility: 02/17/19 12:06 Supervising Physician Co-Signing Physician Notes I saw the patient the resident physician and confirmed gordon portion of the history and physical exam. I agree with the impression and plan as detailed above. The patient remained free of chest pain or shortness of breath overnight. Reviewed the follow-up and medications in detail with the patient. Will decrease her lisinopril from 40 mg to 20 mg daily to allow addition of Toprol 25 mg daily. Dual platelet therapy High intensity statin Follow-up with PCP in 1 to 2 weeks Follow-up with cardiology in 2 weeks as scheduled. Resident Activity Tracking Resident Involvement: Resident Care Provided Care Provided: Adult [facility]
[2019-02-17] MEDS ORDERED: LISINOPRIL 20 MG TAB PO ONE (11:00)
[2019-02-17 11:03] VITALS: TEMP 98.4
[2019-02-17 12:17] VITALS: BP 115/82
[2019-02-17 13:06] VITALS: PULSE 74
--- NOTE | 2019-02-17 16:24 | Billing Data ---
Coding Level of Care Code 29888 OBS Care - Level 3
== END 2019-02-17 12:06 | disposition home or self-care (01) ==
LOC: 2E 00:54 → ED 00:54 → SUATTDRO 04:08 → 2E 04:28